=== PATIENT | male | born 1975 | race Caucasian/White ===

== ENCOUNTER 2017-01-23 15:42 | Emergency (ER) | payer MEDICAID ==
[2017-01-23 16:05] VITALS: BP 143/80
[2017-01-23] MEDS ORDERED: Acetaminophen 325 MG Tab PO ONE (16:36)
--- NOTE | 2017-01-23 16:42 | EDM.PDOC ---
ED HPI LOWER BACK PAIN/INJURY - General Chief Complaint: Back Pain or Injury Stated Complaint: fell hurt back Time Seen by Provider: 01/23/17 16:39 Source: Reports: Patient History Limitations: Reports: No limitations - History of Present Illness INITIAL COMMENTS - FREE TEXT/NARRATIVE: Pt slipped on the steps and landed on his back 2 nites ago. He is having a fair amount of pain. Most of this is on the rt side. His urine has looked dark. Timing/Duration: Reports: Hour(s):, Getting worse Location: Reports: lower Associated Symptoms: Reports: Weakness, Other (pain in low back with movemnt) - Related Data Allergies/ADRs: Allergies Allergy/AdvReac Type Severity Reaction Status Date / Time No Known Allergies Allergy Verified 01/23/17 15:54 Home Meds: Home Meds Albuterol Sulfate [Proair Hfa] 1 - 2 puff IH Q4H PRN 01/15/16 [History] Past Medical History Respiratory History: Reports: Bronchitis, recurrent Gastrointestinal History: Reports: Hemorrhoids Musculoskeletal History: Reports: Fracture Psychiatric History: Reports: Addiction - Infectious Disease History Infectious Disease History: Reports: Chicken pox, Measles - Past Surgical History HEENT Surgical History: Reports: Oral surgery Other HEENT Surgeries/Procedures: wisdom teeth extraction GI Surgical History: Reports: None Dermatological Surgical History: Reports: Other (see below) Social & Family History - Family History Family Medical History: Noncontributory - Tobacco Use Smoking Status *Q: Current Every Day Smoker Years of Tobacco use: 30 Packs/Tins Daily: 1 Used Tobacco, but Quit: No Second Hand Smoke Exposure: Yes - Caffeine Use Caffeine Use: Reports: Coffee, Soda - Alcohol Use Days Per Week of Alcohol Use: 0 - Recreational Drug Use Recreational Drug Use: Yes Drug Use in Last 12 Months: Yes Recreational Drug Type: Reports: Marijuana/Hashish Recreational Drug Use Frequency: Not Used In Over 6 Months ED ROS GENERAL - Review of Systems Review Of Systems: See Below Constitutional: Reports: no symptoms HEENT: Reports: No symptoms Respiratory: Reports: No Symptoms Cardiovascular: Reports: No symptoms Endocrine: Reports: no symptoms GI/Abdominal: Reports: Other ( rt flank pain) : Reports: other ( urine looks dark) Musculoskeletal: Reports: no symptoms Skin: Reports: no symptoms Neurological: Reports: No Symptoms ED EXAM,LOWER BACK PAIN/INJURY - Physical Exam Exam: See Below Text/Narrative:: pt fell 2 nites ago and landed on his back. He has a large hem atoma on the rt side in the cva area. he is tender to move. he is concerned about a fracture. Exam Limited By: No limitations General Appearance: moderate distress Ears: normal TMs Nose: normal inspection Throat/Mouth: Normal inspection Head: atraumatic Neck: normal inspection Respiratory/Chest: no respiratory distress Cardiovascular: regular rate, rhythm GI/Abdominal: other ( tender in the flank. a large hematoma sits in this area. ) Back Exam: other (pt is very tender. He is bruised accross his back. He has a large hematoma on the rt side. ) Extremities: normal inspection Neurological: alert Course - Vital Signs Last Recorded V/S: Last Vital Signs Temp 36.7 C 01/23/17 16:03 Pulse 73 01/23/17 16:03 Resp 16 01/23/17 16:03 BP 143/80 H 01/23/17 16:03 Pulse Ox 98 01/23/17 16:03 - Orders/Labs/Meds Orders: Active Orders 24 hr Category Date Time Status Abdomen Pelvis w Cont [CT] Stat Exams 01/23/17 17:05 Taken Lumbar Spine Min 4V [CR] Stat Exams 01/23/17 16:37 Taken HEPATITIS C ANTIBODY [REF] Stat Lab 01/23/17 17:12 Received UA W/MICROSCOPIC [URIN] Urgent Lab 01/23/17 16:35 Uncollected Iopamidol [Isovue-300 (61%)] Med 01/23/17 17:18 Active 118 ml IV . DIRECTED PRN Sodium Chloride 0.9% [Normal Saline] 1,000 ml Med 01/23/17 17:15 Active IV ASDIRECTED Sodium Chloride 0.9% [Normal Saline] 76 ml Med 01/23/17 17:30 Active IV ASDIRECTED Medication Orders Sodium Chloride (Normal Saline) 1,000 mls @ 999 mls/hr IV ASDIRECTED CIRO Last Admin: 01/23/17 17:21 Dose: 999 mls/hr Sodium Chloride (Normal Saline) 76 mls @ 3.5 mls/sec IV ASDIRECTED CIRO Last Admin: 01/23/17 17:39 Dose: 3.5 mls/sec Iopamidol (Isovue-300 (61%)) 118 ml IV . DIRECTED PRN PRN Reason: RADIOLOGY EXAM Stop: 01/24/17 17:19 Last Admin: 01/23/17 17:39 Dose: 118 ml Labs: Laboratory Tests 01/23/17 01/23/17 Range/Units 16:49 16:49 WBC 6.8 (4.5-11.0) K/uL RBC 4.23 L (4.30-5.90) M/uL Hgb 12.8 (12.0-15.0) g/dL Hct 38.2 L (40.0-54.0) % MCV 90 (80-98) fL MCH 30 (27-31) pg MCHC 34 (32-36) % Plt Count 281 (150-400) K/uL Neut % (Auto) 60 (36-66) % Lymph % (Auto) 28 (24-44) % [place] % (Auto) 10 H (2-6) % Eos % (Auto) 2 (2-4) % Baso % (Auto) 1 (0-1) % Sodium 141 (140-148) mmol/L Potassium 4.3 (3.6-5.2) mmol/L Chloride 107 (100-108) mmol/L Carbon Dioxide 29 (21-32) mmol/L Anion Gap 5.3 (5.0-14.0) mmol/L BUN 13 (7-18) mg/dL Creatinine 0.9 (0.8-1.3) mg/dL Est Cr Clr Drug Dosing 119.75 mL/min Estimated GFR (MDRD) > 60 (>60) Glucose 91 (74-106) mg/dL Calcium 7.7 L (8.5-10.1) mg/dL Total Bilirubin 0.9 (0.2-1.0) mg/dL AST 22 (15-37) U/L ALT 22 (12-78) U/L Alkaline Phosphatase 88 (46-116) U/L Total Protein 6.8 (6.4-8.2) g/dL Albumin 3.2 L (3.4-5.0) g/dL Globulin 3.6 H (2.3-3.5) g/dL Albumin/Globulin Ratio 0.9 L (1.2-2.2) Meds: Medications Generic Name Dose Route Start Last Admin Trade Name Freq PRN Reason Stop Dose Admin Sodium Chloride 1,000 mls @ 999 mls/hr 01/23/17 17:15 01/23/17 17:21 Normal Saline IV 999 mls/hr ASDIRECTED ICRO Administration Sodium Chloride 76 mls @ 3.5 mls/sec 01/23/17 17:30 01/23/17 17:39 Normal Saline IV 3.5 mls/sec ASDIRECTED CIRO Administration Iopamidol 118 ml 01/23/17 17:18 01/23/17 17:39 Isovue-300 (61%) IV 01/24/17 17:19 118 ml . DIRECTED PRN Administration RADIOLOGY EXAM Discontinued Medications Generic Name Dose Route Start Last Admin Trade Name Freq PRN Reason Stop Dose Admin Acetaminophen 1,000 mg 01/23/17 16:48 01/23/17 17:09 Tylenol Extra Strength PO 01/23/17 16:49 1,000 mg ONETIME ONE Administration Sodium Chloride 10 ml 01/23/17 17:18 01/23/17 17:39 Saline Flush FLUSH 01/23/17 17:19 10 ml ONETIME ONE Administration - Re-Assessments/Exams Free Text/Narrative Re-Assessment/Exam: 01/23/17 18:28 pt had a lumbar spine series that was neg. He had a cat scan of the abdoman to look at the rt kidney . The cat scan was neg. He has evidence of the hematoma but no injury to the kidney. Departure - Departure Time of Disposition: 18:31 Disposition: Home, Self-Care 01 Condition: fair Clinical Impression: Contusion of lower back, Hematoma of lumbar muscle Forms: ED Department Discharge Care Plan Goals: cool packs and warm packs to the lower back, tylenol for pain, rtc if problems. - My Orders Last 24 Hours: My Active Orders 01/23/17 16:35 UA W/MICROSCOPIC [URIN] Urgent 01/23/17 16:37 Lumbar Spine Min 4V [CR] Stat 01/23/17 17:05 Abdomen Pelvis w Cont [CT] Stat 01/23/17 17:12 HEPATITIS C ANTIBODY [REF] Stat 01/23/17 17:15 Sodium Chloride 0.9% [Normal Saline] 1,000 ml IV ASDIRECTED 01/23/17 17:18 Iopamidol [Isovue-300 (61%)] 118 ml IV . DIRECTED PRN 01/23/17 17:30 Sodium Chloride 0.9% [Normal Saline] 76 ml IV ASDIRECTED - Assessment/Plan Last 24 Hours: My Active Orders 01/23/17 16:35 UA W/MICROSCOPIC [URIN] Urgent 01/23/17 16:37 Lumbar Spine Min 4V [CR] Stat 01/23/17 17:05 Abdomen Pelvis w Cont [CT] Stat 01/23/17 17:12 HEPATITIS C ANTIBODY [REF] Stat 01/23/17 17:15 Sodium Chloride 0.9% [Normal Saline] 1,000 ml IV ASDIRECTED 01/23/17 17:18 Iopamidol [Isovue-300 (61%)] 118 ml IV . DIRECTED PRN 01/23/17 17:30 Sodium Chloride 0.9% [Normal Saline] 76 ml IV ASDIRECTED
[2017-01-23] MEDS ORDERED: Acetaminophen 500 MG Tab PO ONE (16:48)
[2017-01-23] MEDS ORDERED: Sodium Chloride 0.9% 1,000 ML IV SCH (17:15)
[2017-01-23] MEDS ORDERED: Sodium Chloride 0.9% 10 ML Syringe FLUSH ONE (17:18)
[2017-01-23] MEDS ORDERED: Iopamidol 612 MG/ML 150 ML Bottle IV PRN (17:18)
--- NOTE | 2017-01-25 09:48 | CR ---
Lumbar Spine Min 4V HISTORY: Pain FINDINGS: The lumbar vertebrae are normal in alignment and height with no fracture, erosive or expan sile change, or congenital anomaly. IMPRESSION: Normal lumbar spine examination.
== END 2017-01-23 18:51 | disposition home or self-care (01) ==
LOC: JP.ED 15:42
DX: S30.0XXA Contusion of lower back and pelvis, initial encounter (principal); F17.210 Nicotine dependence, cigarettes, uncomplicated; Z98.890 Other specified postprocedural states; W10.9XXA Fall (on) (from) unspecified stairs and steps, initial encounter
CPT/HCPCS: 36415; 72110; 74177; 80053; 85025; 86803; 96360; 99284; A9270; J7030; J7040; J7050

== ENCOUNTER 2023-09-11 21:46 | Emergency (ER) | payer MEDICAID ==
[2023-09-11 21:56] VITALS: BP 138/94; PULSE 83
== END 2023-09-11 22:28 | disposition home or self-care (01) ==
LOC: JP.ED 21:46
DX: S09.21XA Traumatic rupture of right ear drum, initial encounter (principal); X58.XXXA Exposure to other specified factors, initial encounter
CPT/HCPCS: 99283

== ENCOUNTER 2023-09-12 12:21 | Emergency (ER) | payer MEDICAID ==
[2023-09-12 12:34] VITALS: BP 124/80; PULSE 68
== END 2023-09-12 13:45 | disposition home or self-care (01) ==
LOC: JP.ED 12:21
DX: H72.91 Unspecified perforation of tympanic membrane, right ear (principal); H66.93 Otitis media, unspecified, bilateral; H90.11 Conductive hearing loss, unilateral, right ear, with unrestricted hearing on the contralateral side; F17.210 Nicotine dependence, cigarettes, uncomplicated
CPT/HCPCS: 99282